=== PATIENT | female | born 1945 | race Two or more races ===

== ENCOUNTER 2024-11-16 20:00 | Emergency (ER) | payer MEDICAID ==
[~2024-11-16] VITALS: Ht 152.4 cm; Wt 43.2 kg
[~2024-11-16 20:00] MED LIST: ASPI81CH43; LORA-1123; LOSA-534; OMEPRAZOLE DR 20 MG CAPSULE
--- NOTE | 2024-11-16 21:05 | ED.PDOC ---
Alexi. trauma (HPI) HPI Comments 79y F who presents to the ED for chief complaint of fall injury, Pt states she went outside to check on the chickens, tripped and fell, landing in the dirt on her right side. Pt sustained a small superficial laceration to her right adventist and has right upper thigh pain but no associated loss of consciousness. Pt has been able to walk since the fall, but reports 5/10 thigh pain, states her right adventist is at a 3/10.. Pt does take an aspirin daily, but denies any blood thinner. Vital signs were stable on arrival. Chief Complaint: Fall Injury Time Seen by MD: 20:19 Primary Care Provider: CLARIBEL Reviewed notes: Nurses Notes, Medications, Allergies Allergies: Coded Allergies: Penicillins (Verified Allergy, Unknown, 11/08/13) Home Meds Reported Medications Aspirin (Asa) 81 Mg Ch 12/20/12 [Losartan [id number] Mg] (Losartan Potassium) 50 MG TAB No Conflict Check, MG 12/20/12 [Lorazepam1 Mg] (Lorazepam) 1 MG TAB No Conflict Check, MG 12/20/12 [Omeprazole Dr 20 Mg Capsule] No Conflict Check 12/20/12 Information Source: Patient, Relative Mode of Arrival: Wheelchair Severity: Moderate Timing: Minutes Duration: Since onset Prehospital treatment: None Location: Head, (R) Leg Location of laceration: Head Mechanism: Blunt trauma, Fall Past Medical History PAST MEDICAL HISTORY: HTN, [place] Surgical History: Cholecystectomy [employer] History: No Pertinent [employer] History Family History Family History: Unobtainable Social History Smoker: Non-Smoker Alcohol: Denies ETOH Use Drugs: Denies Drug Use Lives In: Home Constitutional: denies: chills, diaphoresis, fatigue, fever, malaise, sweats, weakness, others EENTM: denies: blurred vision, double vision, ear bleeding, ear discharge, ear drainage, ear pain, ear ringing, eye pain, eye redness, hearing loss, mouth pain, mouth swelling, nasal discharge, nose bleeding, nose congestion, nose p ain, photophobia, tearing, throat pain, throat swelling, voice changes, others Respiratory: denies: cough, hemoptysis, orthopnea, SOB at rest, shortness of breath, SOB with excertion, stridor, wheezing, others Cardiovascular: denies: chest pain, dizzy spells, diaphoresis, Dyspnea on exertion, edema, irregular heart beat, left arm pain, lightheadedness, palpitations, PND, syncope, others Gastrointestinal: denies: abdomen distended, abdominal pain, blood streaked bowels, constipated, diarrhea, dysphagia, difficulty swallowing, hematemesis, melena, nausea, poor appetite, poor fluid intake, rectal bleeding, rectal pain, vomiting, others Genitourinary: denies: abnormal vagina bleeding, burning, dyspareunia, dysuria, flank pain, frequency, hematuria, incontinence, pain, , vagina discharge, urgency, others Neurological: reports: headache; denies: dizziness, fainting, left sided n umbness, left sided weakness, numbness, paresthesia, pre-existing deficit, right sided numbness, right sided weakness, seizure, speech problems, tingling, tremors, weakness, others Musculoskeletal: reports: others (Right lateral thigh); denies: back pain, gout, joint pain, joint swelling, muscle pain, muscle stiffness, neck pain Integumetry: reports: wounds (Scalp); denies: bruises, change in color, change in hair/nails, dryness, laceration, lesions, lumps, rash, others Allergic/Immunocompromised: denies: Difficulty Healing, Frequent Infections, Hives, Itching, others Hematologic/Lymphatic: denies: anemia, blood clots, easy bleeding, easy bruising, swollen glands, others Endocrine: denies: excessive hunger, excessive sweating, excessive thirst, excessive urination, flushing, intolerance to cold, intolerance to heat, unexplained weight gain, unexplained weight loss, others Psychiatric: denies: anxiety, bipolar disorder, depression, hopeless, panic disorder, schizophrenia, sleepless, suicidal, others All Other Systems: Reviewed and Negative (see HPI) Physical Exam General Appearance: Mild Distress (Patient was only in mild distress as long she would move. Patient declined any pain medication while at the facility.), Normal HEENT: Head (Patient has a small superficial tear to the skin on the lateral and superior aspect of the right eyebrow. Resolving hematoma noted. No definitive skull depressions or deformities.), Normal ENT Inspection, Pharynx Normal, TMs Normal Neck: Full Range of Motion, Non-Tender, Normal, Normal Inspection Respiratory: Chest Non-Tender, Lungs Clear, No Accessory Muscle Use, No Respiratory Distress, Normal Breath Sounds Cardiovascular: No Edema, No JVD, No Murmur, No Gallop, Normal Peripheral Pulses, Regular Rate/Rhythm Breast Exam: Deferred Gastrointestinal: No Organomegaly, Non Tender, No Pulsatile Mass, Normal Bowel Sounds, Soft Genitalia: Deferred Pelvic: Deferred Rectal: Deferred Extremities: Other (Proximal hip reveals a small ecchymotic contusion with localized edema. No crepitus noted.) Neurologic: Alert Cerebellar Function: NOT DONE Reflexes: NOT DONE Skin: Dry, Normal Color, Warm Lymphatic: No Adenopathy Was a procedure done? Was a procedure done?: No Differential Diagnosis Multiple Trauma: Fractures, Abrasions, Contusion, Other (Arachnoid hemorrhage, subdural hematoma, skull fracture) X-Ray, Labs, Meds, VS Vital Signs Date Time Temp Pulse Resp B/P (MAP) Pulse Ox O2 Delivery O2 Flow Rate FiO2 11/16/24 20:20 98.7 94 14 133/76 (95) 97 98.7 X-Ray, Labs, Meds, VS Comment All studies performed the ED were evaluated by me personally. CT of the head was unremarkable for any acute intracranial concerns. No skull fractures. Right femur was unremarkable for any fractures. Patient appears to have sustained some contusions related to her event. Advised pain medication as needed as well as ice therapy. Time of 1ST Reevaluation: 21:47 Reevaluation 1ST: Improved Consultation: PCP Patient Education/Counseling: Diagnosis, Treatment Family Education/Counseling: Diagnosis, Treatment Departure 1 Departure Time of Disposition: 21:48 Impression: Primary Impression: Head trauma Additional Impression: Contusion of leg Disposition: 01 HOME / SELF CARE / HOMELESS Condition: Stable Additional Instructions: Advised pain medication as needed for symptomatic relief as well as ice therapy. e-Prescriptions Hydrocodone-Acetaminophen (Hydrocodone Bitartrate/AC 5-325 mg) 1 Tab Tab 1 TAB PO Q6HP PRN, #12 TAB Prov: KACI TORRES PAC 11/16/24 Discharged With: Self, Relative Critical Care Note Critical Care Time?: No Stability Stability form required: No Heart Score Heart Score: Heart Score Response (Comments) Value History N/A 0 EKG N/A 0 Age N/A 0 Risk Factors N/A 0 Troponin N/A 0 Total 0 I personally scribed for KACI TORRES PAC ([email or web address]) on 11/16/24 at 21:05. Electronically submitted by Candice Wilson ([email or web address]). KACI TORRES PAC Nov 16, 2024 21:05
--- NOTE | 2024-11-16 21:11 | DVH ---
CLINICAL INDICATION: Fall/trauma TECHNIQUE: 4 radiographic views of the right femur were obtained. Comparison: None FINDINGS/IMPRESSION: Right femur appears to be in tact. No fracture dislocation. If clinical exam strongly suggests fracture recommend CT pelvis.
--- NOTE | 2024-11-16 21:14 | DVH ---
Procedure: CT HEAD WITHOUT CONTRAST Study Date and Requested Time: 11/16/2024 08:38 PM History: Fall/head trauma Comparison: None Dose: CTDI: 51.33 mGy DLP: 1011.64 mGycm Technique: Multiplanar images obtained through the brain without intravenous contrast. Findings: 8 [id number] diffuse brain Atrophy. Severe chronic small vessel ischemic changes. 5 x 4 mm focal thickening of the high convexity frontal falx . Focus of calcification along the right tentorium No hemorrhages, mass effect, midline shift, herniation or cytotoxic edema following a lar ge vascular territory. No intra-axial or extra-axial fluid collections. No evidence of hydrocephalus. The basal cisterns are patent. The pituitary gland, sella and parasellar regions are unremarkable. The cerebellar tonsils are in nor mal position. The cerebellum is unremarkable. Bilateral lens replacement. Bilateral orbital enophthalmos Otherwise, orbits and globes are unremarka ble. Mucous retention cysts within the maxillary sinuses. Otherwise, the visualized paranasal sinuses and mastoids are clear. There are no worrisome calvarial lesions. Impression: No evidence of acute intracranial abnormality. 5 x 4 mm focal thickening of the high convexity frontal falx . A small meningioma is within the diffe rential.
[2024-11-16] MEDS ORDERED: HYDR-4902 PO (21:49)
[2024-11-16 22:16] VITALS: BP 117/69; PULSE 83; RESP 16; TEMP 98.4; O2SAT 97
== END 2024-11-16 22:16 | disposition home or self-care (01) ==
LOC: ER 20:00
DX: S01.81XA Laceration without foreign body of other part of head, initial encounter (principal); S71.111A Laceration without foreign body, right thigh, initial encounter; S70.11XA Contusion of right thigh, initial encounter; I10 Essential (primary) hypertension; I21.9 Acute myocardial infarction, unspecified; Z90.49 Acquired absence of other specified parts of digestive tract; Z88.0 Allergy status to penicillin; Z79.82 Long term (current) use of aspirin; Z79.899 Other long term (current) drug therapy; W01.0XXA Fall on same level from slipping, tripping and stumbling without subsequent striking against object, initial encounter; Y93.89 Activity, other specified; Y92.89 Other specified places as the place of occurrence of the external cause; Y99.8 Other external cause status
CPT/HCPCS: 70450